=== PATIENT | female | born 1940 | race Caucasian/White ===

== ENCOUNTER → 2018-06-17 14:10 | Outpatient (CLI) | payer MEDICARE, OTHER ==
[2010-06-19 08:51] VITALS: BMI 26.0
== END | disposition home or self-care (01) ==
LOC: D.US 14:10
DX: R60.0 Localized edema (principal); M79.605 Pain in left leg; M79.604 Pain in right leg

== ENCOUNTER → 2018-06-29 07:49 | Outpatient (CLI) | payer MEDICARE, OTHER ==
[2010-06-19 08:51] VITALS: BMI 26.0
== END | disposition home or self-care (01) ==
LOC: D.CT 07:49
DX: R60.9 Edema, unspecified (principal)

== ENCOUNTER → 2019-03-08 12:53 | Outpatient (CLI) | payer MEDICARE, OTHER ==
[2010-06-19 08:51] VITALS: BMI 26.0
--- NOTE | 2019-03-10 09:14 | EC ---
PATIENT:SARAH ANDERSEN DATE OF SERVICE: 03/08/19 SEX: F MEDICAL RECORD: [id number] DATE OF : 40 LOCATION:[facility] AGE OF PATIENT: 79 ADMISSION DATE: 03/08/19 REFERRING PHYSICIAN: INTERPRETING PHYSICIAN: DAVID IVERSON MD ECHOCARDIOGRAM REPORT ECHO CHARGES 4 ECHO COMPLETE Date: 03/08/19 CLINICAL DIAGNOSIS: MITRAL VALVE DISORDER/DIZZY/ NEAR SYNCOPE HX CAD/STENTS/HTN ECHOCARDIOGRAPHIC MEASUREMENTS (adult normal given) AC root (d.<3.7cm) 3.9 cm LV Septum d (<1.2 cm> 1.2 cm Valve Excursion 1.8 cm LV Septum (systole) 1.6 cm Left Atria (s.<4.0cm> 4.5 cm LVPW d(<1.2cm) 1.5 cm RV (d.<2.3cm) 4.1 cm LVPW (sytole) 1.9 cm LV diastole(<5.6CM) 5.2 cm MV E-F(>70mm/sec) cm LV systole 3.0 cm LVOT Diameter 1.9 cm MV exc.(>10mm) 1.7 cm Est.ejection fraction (50-75%) % DOPPLER: LVIT cm/sec A 77.0 cm/sec E 59.0 cm/sec LA cm/sec RVSP 35 mmHg LVOT 118 cm/sec AOP1/2T m/s Asc. 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 Iverson TAPE# PACS Pericardial Effusion N DATE OF SERVICE: FINDINGS: 1. Left ventricular chamber size is within normal limits. Left ventricular systolic function is normal. Overall ejection fraction estimated at 60% to 65%. 2. Left atrium, right atrium, and right ventricular size are mildly dilated. Left atrium measures 4.5 cm. 3. Valvular structures have normal structure and motion. 4. Doppler interrogation reveals trace to mild aortic insufficiency, mild mitral ECHOCARDIOGRAM REPORT [id number] SARAH ANDERSEN regurgitation, mild tricuspid regurgitation, no other valvular insufficiency or stenosis. 5. No evidence of pericardial effusion or left ventricular thrombus. TRANSINT:[id number] Voice Confirmation ID: [id number] DOCUMENT ID: [id number] DAVID IVERSON MD at 0914 CC: [id number] DICTATION DATE: 03/08/19 1549 HOME ENERGY INSPECTOR: 03/09/19 0319 DEP CLI 03/08/19 [place] [id number] [place] [id number]
== END | disposition home or self-care (01) ==
LOC: D.HCCECHO 12:53
PROVIDERS: ATTEND Internal Medicine Interventional Cardiology
DX: I05.9 Rheumatic mitral valve disease, unspecified (principal)